=== PATIENT | male | born 1945 | race Caucasian/White ===

== ENCOUNTER 2021-07-20 01:20 | Inpatient (IN) | payer MEDICARE ==
[~2021-07-20] VITALS: Ht 167.6 cm; Wt 75.3 kg
[2021-07-20] MEDS ORDERED: ZYRTEC10 M2 PO (01:40)
[2021-07-20] MEDS ORDERED: OMEP20ER PO (01:40)
[2021-07-20 02:13] LABS: BASOPHILS ABSOLUTE AUTO 0.03 K/mm3 (0.00-0.23); BASOPHILS PERCENT AUTO 1 % (0-2); EOSINOPHILS ABSOLUTE AUTO 0.27 K/mm3 (0.00-0.68); EOSINOPHILS PERCENT AUTO 6 % (0-6); Hematocrit 44.2 % (37.0-53.0); IMMATURE GRAN ABSOLUTE AUTO 0.01 K/mm3 (0.00-0.10); IMMATURE GRAN PERCENT AUTO 0 % (0-1); LYMPHOCYTES ABSOLUTE AUTO 1.49 K/mm3 (0.84-5.20); LYMPHOCYTES PERCENT AUTO 34 % (21-46); MONOCYTES ABSOLUTE AUTO 0.47 K/mm3 (0.16-1.47); MONOCYTES PERCENT AUTO 11 % (4-13); Mean Corpuscular HGB 32.5 pg (26.0-34.0); Mean Corpuscular HGB Conc 33.9 g/dL (31.5-36.5); Mean Corpuscular Volume 96 fL (80-100); Mean Platelet Volume 9.5 fL (9.1-12.4); NEUTROPHILS ABSOLUTE AUTO 2.15 K/mm3 (1.96-9.15); NEUTROPHILS PERCENT AUTO 49 % (41-73); Platelet Count 172 K/mm3 (150-400); RDW Standard Deviation 42.1 fL (35.1-46.3); Red Blood Cell Count 4.61 M/mm3 (4.30-5.90); White Blood Cell Count 4.42 K/mm3 (4.00-11.30)
[2021-07-20 02:26] LABS: Alanine Aminotransfer (ALT/SGP 24 U/L (12-78); Albumin, Blood 3.3 g/dL (3.4-5.0); Albumin/Globulin Ratio 0.9 (0.8-1.8); Alk Phos 56 U/L (50-136); Anion Gap 4 mmol/L (6-16); Aspartate Aminotrans (AST/SGOT 16 U/L (12-37); Bilirubin, Total 0.3 mg/dL (0.1-1.0); Blood Urea Nitrogen 19 mg/dL (8-24); Bun/Creatinine Ratio 17.6 (12.0-20.0); CO2, Blood 29 mmol/L (21-32); Calcium, Blood 8.8 mg/dL (8.5-10.1); Chloride, Blood 110 mmol/L (98-108); Creatinine, Blood 1.08 mg/dL (0.60-1.20); Globulin, Blood 3.5 g/dL (2.2-4.0); Glomerular Filtration Rate >60 (60-); Glucose, Blood 113 mg/dL (70-99); Sodium, Blood 143 mmol/L (136-145); Total Protein, Blood 6.8 g/dL (6.4-8.2); Troponin I <0.015 ng/mL (0.000-0.040)
[2021-07-20 05:45] LABS: Influenza A, PCR NEGATIVE (NEGATIVE); Influenza B, PCR NEGATIVE (NEGATIVE); Resp Syncytial Virus, PCR NEGATIVE (NEGATIVE); SARS-Cov-2 (COVID-19) PCR, MMC NEGATIVE (NEGATIVE)
[2021-07-20 06:28] LABS: Anti-Xa UFH, PHA Monitoring <0.10 IU/mL; International Normalized Ratio 1.03; Prothrombin Time Results 10.8 Sec (9.7-11.5)
[2021-07-20 06:40] LABS: CHOL/HDL RATIO 3.2; Cholesterol 185 mg/dL (50-200); HDL Cholesterol 57 mg/dL (>39); Low Density Lipoprotein Chol 116 mg/dL (0-110); Triglycerides 60 mg/dL (30-160); Very Low Density Lipoprot Chol 12 mg/dL (6-32)
--- NOTE | 2021-07-20 14:00 | NUR ---
CRITICAL RESULT CRITICAL RESULT CALLED TO PHARMACY REGARDING HEPARIN GTT. ORDERS TO HOLD HEPARIN GTT UNTIL 1450.
--- NOTE | 2021-07-20 14:45 | NUR ---
PT TO [facility] BY BED WITH CHART WITH HC RN.
--- NOTE | 2021-07-20 17:41 | NUR ---
SHIFT SUMMARY PT BACK FROM [facility]. R RADIAL SITE HAS [address] WNL[address] PULSES STRONG. PT REPORTS TO HAVE FULL SENSATION IN FINGERS. HR STABLE. BP STABLE. NO CP OR PRESSURE. PT ALERT AND ORIENTED. DR. MITTAL AT BEDSIDE DISCUSSING FINDINGS OF ANGIO. OXYGEN SATRUATION MAINTAINED ABOVE 92% ON RA. WILL START TO DEFLATE TR BAND AT 1845, 2 HRS POST PLACEMENT. AT BEDSIDE. WILL CONT TO MONITOR UNTIL REPORT GIVEN TO NIGHTSHIFT RN.
--- NOTE | 2021-07-20 18:54 | NUR ---
UPDATE ON TR BAND PT HAS SLIGHT OOZING ON SITE CLOSEST TO HAND. BANDAID HAD BLOOD OOZING OUT OF SIDES. BOTH TR BANDS ARE STILL IN PLACE WITH FULL AMOUTN OF AIR. PRESSURE HELD ON SITE. SITE NO LONGER OOZING. WILL CONT TO MONITOR. SECRETARY OF STATE INFORMED.
--- NOTE | 2021-07-20 19:31 | NUR ---
UPDATE PHYSICIAN UPDATED ON SMALL HEMATOMA FORMATION TOWARDS RADIAL SITE CLOSEST TO PALM OF HAND, AND OOZING AT THIS SITE. INSTRUCTED TO CONT TO MONITOR AND CONTACT IF FURTHER BLEEDING OCCURS.
--- NOTE | 2021-07-21 04:32 | NUR ---
SHIFT SUMMARY PATIENT ALERT AND ORIENTED THIS SHIFT. VSS, REMAINED ON ROOM AIR. DENIES CHEST PAIN OR PRESSURE. RIGHT RADIAL SITES ARE NOW COVERED WITH TEGADERM AND IS WNL. CAP REFILL LESS THAN 3 SECONDS, DENIES NUMBNESS OR TINGLING. RIGHT RADIAL PULSE STRONG. PATIENT AMBULATED INTO BATHROOM INDPENDENTLY. NO OTHER SIGNIFICANT CHANGES TO PATIENT THIS SHIFT. WILL REPORT TO DAY SHIFT RN.
[2021-07-21 05:54] LABS: BASOPHILS ABSOLUTE AUTO 0.02 K/mm3 (0.00-0.23); BASOPHILS PERCENT AUTO 0 % (0-2); EOSINOPHILS ABSOLUTE AUTO 0.19 K/mm3 (0.00-0.68); EOSINOPHILS PERCENT AUTO 4 % (0-6); Hematocrit 42.6 % (37.0-53.0); Hemoglobin 14.4 g/dL (13.5-17.5); IMMATURE GRAN ABSOLUTE AUTO 0.01 K/mm3 (0.00-0.10); IMMATURE GRAN PERCENT AUTO 0 % (0-1); LYMPHOCYTES ABSOLUTE AUTO 1.23 K/mm3 (0.84-5.20); LYMPHOCYTES PERCENT AUTO 25 % (21-46); MONOCYTES ABSOLUTE AUTO 0.46 K/mm3 (0.16-1.47); MONOCYTES PERCENT AUTO 9 % (4-13); Mean Corpuscular HGB 32.2 pg (26.0-34.0); Mean Corpuscular HGB Conc 33.8 g/dL (31.5-36.5); Mean Corpuscular Volume 95 fL (80-100); Mean Platelet Volume 9.5 fL (9.1-12.4); NEUTROPHILS PERCENT AUTO 61 % (41-73); Platelet Count 163 K/mm3 (150-400); RDW Coefficient Variation 12.1 % (11.7-14.2); RDW Standard Deviation 43.1 fL (35.1-46.3); Red Blood Cell Count 4.47 M/mm3 (4.30-5.90); White Blood Cell Count 4.91 K/mm3 (4.00-11.30)
[2021-07-21 06:17] LABS: Anion Gap 3 mmol/L (6-16); Blood Urea Nitrogen 16 mg/dL (8-24); Bun/Creatinine Ratio 16.7 (12.0-20.0); CO2, Blood 25 mmol/L (21-32); Chloride, Blood 114 mmol/L (98-108); Creatinine, Blood 0.96 mg/dL (0.60-1.20); Glomerular Filtration Rate >60 (60-); Glucose, Blood 91 mg/dL (70-99); Sodium, Blood 142 mmol/L (136-145)
--- NOTE | 2021-07-21 10:50 | NUR ---
UPDATE CARDIOLOGY TO SIGN OFF AT THIS TIME. OK'D FOR HOSPITALIST TO DC PT PER CARDIOLOGY. INFORMED DR. MARTINEZ.
[2021-07-21] MEDS ORDERED: AMLO5 PO (11:43)
[2021-07-21] MEDS ORDERED: ASPI81CH PO (11:44)
[2021-07-21] MEDS ORDERED: ATOR40TA PO (11:45)
[2021-07-21] MEDS ORDERED: CLOP75 PO (11:46)
--- NOTE | 2021-07-21 12:29 | NUR ---
PT DISHCARGE PT PROVIDED WITH DISCHARGE INSTRUCTIONS PER PHYSICIAN. PT PROVIDED WITH EDUCATION REGARDING NEW MEDICATIONS. MEDICATIONS FAXED TO PT'S PREFERRED PHARMACY. NO CP OR PRESSURE TODAY. PT'S AT BEDSIDE FOR INSTRUCTIONS. IV REMOVED. TELE REMOVED. PT WALKED TO PRIVATE VEHICLE WITH .
== END 2021-07-21 12:25 | disposition home or self-care (01) | DRG 282 ==
LOC: ER 01:20 → ERHOLD 05:07 → PCU 05:07
PROVIDERS: Family Medicine; Student in an Organized Health Care Education/Training Program; ADMIT Family Medicine
PROC: 4A023N7 Measurement of Cardiac Sampling and Pressure, Left Heart, Percutaneous Approach (ICD-10-PCS; principal; 2021-07-20)
PROC: B2111ZZ Fluoroscopy of Multiple Coronary Arteries using Low Osmolar Contrast (ICD-10-PCS; 2021-07-20)
PROC: 4A033BC Measurement of Arterial Pressure, Coronary, Percutaneous Approach (ICD-10-PCS; 2021-07-20)
DX: I21.4 Non-ST elevation (NSTEMI) myocardial infarction (principal); Z20.822 Contact with and (suspected) exposure to COVID-19; R73.9 Hyperglycemia, unspecified; K21.9 Gastro-esophageal reflux disease without esophagitis; I10 Essential (primary) hypertension; Z90.49 Acquired absence of other specified parts of digestive tract; Z88.8 Allergy status to other drugs, medicaments and biological substances; Z79.899 Other long term (current) drug therapy
CPT/HCPCS: 0241U; 36415; 71045; 76937; 80048; 80053; 80061; 83036; 84443; 84484; 85025; 85347; 85520; 85610; 93005; 93010; 93306; 93454; 93571; 96374; 99152; 99153; 99285-25; A9270; C1769; C1887; C1894; J1644; J2250; J2370; J3010; J7030; J7050; Q9967